=== PATIENT | male | born 1985 | race African-American/Black ===

== ENCOUNTER 2022-11-11 13:08 | Emergency (ER) | payer MEDICAID, OTHER ==
[~2022-11-11] VITALS: Ht 167.6 cm; Wt 100.0 kg
[2022-11-11 13:15] VITALS: BP 133/89
== END 2022-11-11 19:36 | disposition left against medical advice (07) ==
LOC: ER 13:08
DX: G40.909 Epilepsy, unspecified, not intractable, without status epilepticus (principal)
CPT/HCPCS: 99281

== ENCOUNTER 2023-02-09 12:35 | Emergency (ER) | payer MEDICAID, OTHER ==
[~2023-02-09] VITALS: Ht 167.6 cm; Wt 100.0 kg
[2023-02-09 12:40] VITALS: BP 124/81
== END 2023-02-09 15:58 | disposition left against medical advice (07) ==
LOC: ER 12:35
DX: Z53.21 Procedure and treatment not carried out due to patient leaving prior to being seen by health care provider (principal)
CPT/HCPCS: 99281

== ENCOUNTER 2023-03-17 14:35 | Emergency (ER) | payer OTHER ==
[~2023-03-17] VITALS: Ht 167.6 cm; Wt 100.0 kg
[2023-03-17 15:22] VITALS: BP 127/73
[2023-03-17] MEDS ORDERED: LORAZEPAM 0.5MG TABLET PO ONE (16:30)
[2023-03-17] MEDS ORDERED: KETOROLAC 60MG/2ML VIAL IM ONE (16:30)
[2023-03-17] MEDS ORDERED: CYCL10TA21 MT (16:51)
[2023-03-17] MEDS ORDERED: IBUP-2029 MT (16:51)
== END 2023-03-17 17:15 | disposition home or self-care (01) ==
LOC: ER 14:35
DX: M54.9 Dorsalgia, unspecified (principal)
CPT/HCPCS: 96372; 99283; J1885; Z7610